=== PATIENT | female | born 1965 | race Caucasian/White ===

== ENCOUNTER 2017-07-29 17:37 | Observation (INO) | payer MEDICARE, OTHER ==
[~2017-07-29] VITALS: Ht 160 cm; Wt 67.6 kg
--- OUTSIDE RECORDS SUMMARY | 2017-07-29 17:39 | XMS REPORT | Clinical Summary ---
Author Author [facility] Organization [facility] Address Unknown Phone Unavailable Care Team Providers Care Log Skidder Name Role Phone Deepthi Edouard MD PCP Allergies Active Allergy Reactions Severity Noted Date Comments Ciprofloxacin Rash Low 02/16/2016 Clindamycin Hives, Rash High 10/01/2016 Ziprasidone Hcl High 02/16/2016 Fluid around heart Other 12/25/2016 All medications that prolong QT Metoclopramide Hcl 02/16/2016 Seizures Current Medications Prescription Sig. Disp. Refills Start End Date Status Date HYDROcodone-acetaminophen Take 1 tablet by mouth Active (NORCO 10-325) 10-325 mg every 4 (four) hours as per tablet needed for moderate pain. mirtazapine (REMERON) 15 Take 15 mg by mouth Active MG tablet nightly. pantoprazole (PROTONIX) Take 40 mg by mouth 3 Active 40 MG EC tablet (three) times a day. promethazine (PHENERGAN) Take 12.5 mg by mouth Active 12.5 MG tablet every 8 (eight) hours as needed for nausea or vomiting. sertraline (ZOLOFT) 100 Take 150 mg by mouth Active MG tablet nightly. sucralfate (CARAFATE) 1 Take 1 g by mouth 4 Active gram tablet (four) times a day. lamoTRIgine (LaMICtal) Take 200 mg by mouth Active 200 MG tablet daily. losartan (COZAAR) 50 MG Take 50 mg by mouth Active tablet daily. SUMAtriptan (IMITREX) 100 Take 100 mg by mouth once Active MG tablet as needed for migraine. May repeat in 2 hours if unresolved. Do not exceed 200 mg in 24 hours. levalbuterol (XOPENEX) Take 1 ampule by Active 1.25 mg/3 mL nebulizer nebulization every 4 solution (four) hours as needed for wheezing. beclomethasone (QVAR) 80 Inhale 2 puffs 2 (two) Active mcg/actuation inhaler times a day. cyclobenzaprine Take 10 mg by mouth 3 Active (FLEXERIL) 10 mg tablet (three) times a day. pregabalin (LYRICA) 100 Take 100 mg by mouth 2 Active MG capsule (two) times a day. umeclidinium (INCRUSE Inhale 62.5 mcg daily. Active ELLIPTA) 62.5 mcg/actuation blister with device methocarbamol (ROBAXIN) Take 750 mg by mouth 4 08/15/19 Discontin 750 MG tablet (four) times a day. 17 ued acyclovir (ZOVIRAX) 400 Take 400 mg by mouth 12/20/19 Discontin MG tablet daily. 17 ued lactulose (GENERLAC) 10 Take 20 g by mouth 4 12/20/19 Discontin gram/15 mL solution (four) times a day. 17 ued lamoTRIgine (LaMICtal) Take 200 mg by mouth 2 08/15/19 Discontin 200 MG tablet (two) times a day. 17 ued methocarbamol (ROBAXIN) Take 750 mg by mouth 4 09/14/19 Discontin 750 MG tablet (four) times a day. This 17 ued medication has been exchanged for another medication that she can't remember the name of. ipratropium-albuterol Take 3 mL by nebulization 09/14/19 Discontin (DUO-NEB) 0.5-2.5 mg/mL 4 (four) times a day as 17 ued nebulizer needed for wheezing. acetaminophen-codeine Take 1 tablet by mouth 40 tablet 0 09/14/19 Discontin (TYLENOL WITH CODEINE #3) every 4 (four) hours as 17 17 ued 300-30 mg per tablet needed for moderate pain for up to 14 days. clindamycin (CLEOCIN) 300 Take 1 capsule (300 mg 40 capsule 0 09/28/19 MG capsule total) by mouth every 6 17 17 (six) hours for 10 days. Active Problems Problem Noted Date Gastroparesis 12/25/2016 Cellulitis 09/17/2016 Cervical radiculopathy 04/20/2016 Osteoarthritis of cervical spine 04/20/2016 Night sweats 02/16/2016 Weight gain 02/16/2016 Headache 02/16/2016 Problems with hearing 02/16/2016 Abdominal pain 02/16/2016 Constipation 02/16/2016 Diarrhea 02/16/2016 Heartburn 02/16/2016 Nausea 02/16/2016 Vomiting 02/16/2016 Palpitations 02/16/2016 Shortness of breath 02/16/2016 Cold intolerance 02/16/2016 Dizziness 02/16/2016 Anxiety 02/16/2016 Depression 02/16/2016 Carpal tunnel syndrome of right wrist 02/16/2016 Ulnar nerve compression 02/16/2016 Encounters Date Type Specialty Care Team Description 01/28/2017 Office Visit Orthopedic Surgery Juan Mcmahan, Cervical vertebral fusion (Primary Dx); Chronic low back pain without sciatica, unspecified back pain laterality 12/25/2016 [facility] Obstetrics and Gynecology Venkat Pitts MD Gastroparesis - Encounter 12/28/2016 12/25/2016 Procedure Pass General Surgery 12/25/2016 Surgery General Surgery Venkat Pitts MD LAPAROSCOPIC REMOVAL OF GASTRIC PACEMAKER AND NEUROSTIMULATOR 12/19/2016 Pre-Admit Pre-Admission Testing Venkat Pitts MD Preop testing (Primary Testing Dx) Appointment 12/19/2016 Office Visit General Surgery Venkat Pitts MD Generalized abdominal pain (Primary Dx) 12/19/2016 Anesthesia General Surgery Sunil Jules APRN Event 11/22/2016 Telephone Orthopedic Surgery Jennifer Hernandez 11/15/2016 Procedure Pass General Surgery 10/01/2016 Office Visit General Surgery Venkat Pitts MD Gastroparesis (Primary Dx) 09/24/2016 Office Visit Orthopedic Surgery Juan Mcmahan, Cervical vertebral fusion (Primary Dx); Degeneration of lumbar intervertebral disc; Lumbar radiculopathy, acute 09/17/2016 [facility] General Surgery Abdirahman Francois MD Encounter Venkat Pitts MD 09/17/2016 Patient Quality Alicia Nowak, HOLLY Outreach 09/13/2016 [facility] General Surgery Venkat Pitts MD Encounter 09/13/2016 Procedure Pass General Surgery 09/13/2016 Surgery General Surgery Venkat Pitts MD LAPAROSCOPIC GASTRIC PACEMAKER POCKET EXCHANGE 09/11/2016 Orders Only General Surgery Magdaleno Munoz MD 09/10/2016 Anesthesia General Surgery [facility], Event MAREN Morales 08/13/2016 Office Visit Orthopedic Surgery Juan Mcmahan, Degeneration of lumbar MD intervertebral disc (Primary Dx); Spinal stenosis, lumbar; Lumbar radiculopathy, acute 2016 Office Visit General Surgery Venkat Pitts MD Gastroparesis (Primary Dx); Malfunction of device, initial encounter 08/03/2016 Office Visit Orthopedic Surgery Juan Mcmahan, Cervical vertebral fusion (Primary Dx); Acute left-sided low back pain with left-sided sciatica 08/03/2016 Office Visit Orthopedic Surgery Ran Hicks MD Arthritis of both hands (Primary Dx) after 07/28/2016 Family History Medical History Relation Name Comments Heart disease Father main valve;pig valve Alzheimer's disease Mother HIV Other sibling Relation Name Status Comments Father Mother Other sibling Social History Tobacco Use Types Packs/Day Years Used Date Never Smoker Smokeless Tobacco: Never Used Alcohol Use Drinks/Week oz/Week Comments No Sex Assigned at Date Recorded Not on file Last Filed Vital Signs Vital Sign Reading Time Taken Blood Pressure 165/89 12/28/2016 8:02 PM CDT Pulse 67 12/28/2016 8:02 PM CDT Temperature 36.5 C (97.7 F) 12/28/2016 8:02 PM CDT Respiratory Rate 18 12/28/2016 8:02 PM CDT Oxygen Saturation 97% 12/28/2016 8:02 PM CDT Inhaled Oxygen - - Concentration Weight 68 kg (150 lb) 01/28/2017 4:13 PM CDT Height 160 cm (5' 3") 01/28/2017 4:13 PM CDT Body Mass Index 26.57 01/28/2017 4:13 PM CDT Plan of Treatment Health Maintenance Due Date Last Done Comments FOOT EXAM 1974 OPHTHALMOLOGY EXAM 1974 URINE MICROALBUMIN 1974 PAP SMEAR 1985 COLONOSCOPY 2014 MAMMOGRAM 2014 INFLUENZA VACCINE 01/08/2017 Implants Implanted Type Area Hose Seamer Device Expiration Model / Identifier Date Serial / Lot Hde# [id number] Neurostimulator Neurosurgi N/A: N/A [employer] 2016 [id number] / Enterra Ii Therapy System - david NEUROMODULATION [id number] - [id number] Implants / Implanted: Qty: 1 on 09/13/2016 by [id number] Venkat Pitts MD Procedures Procedure Name Priority Date/Time Associated Diagnosis Comments DC AN ELECTIVE Routine 12/25/2016 ENDOTRACHEAL AIRWAY 4:21 PM CDT Procedure Note - Claudia Hawkins CRNA - 12/25/2016 4:21 PM CDT Airway Performed by: CLAUDIA HAWKINS Authorized by: ANÍBAL MOREIRA Location: OR Urgency: Elective Difficult Airway: No Preoxygena alexa with 100% O2: Yes Mask Ventilatio n: Easy mask Final Airway Type: Endotrache al airway Final Endotrache al Airway: ETT Technique Used: Direct laryngosco py Blade Type: San Laryngosco pe Blade/Vide olaryngosc ope Blade Size: 2 ETT Size (mm): 7.0 Measured from: Teeth ETT to Teeth (cm): 20 Placement Verified by: CO2 detection and direct visualizat ion Rapid Sequence Induction (RSI): Yes Number of Attempts at Approach: 1 LAPAROSCOPIC REMOVAL OF 12/25/2016 Gastroparesis GASTRIC PACEMAKER AND 4:00 PM CDT NEUROSTIMULATOR Case Notes POSSIBLE EXTENDED RECOVERY NEEDED Special Needs POSSIBLE EXTENDED RECOVERY NEEDED CV DEFIBRILLATOR STAT 12/25/2016 PROGRAMMING SINGLE 11:19 AM CDT LAPAROSCOPIC GASTRIC 09/13/2016 Diabetic gastroparalysis PACEMAKER POCKET EXCHANGE 10:30 AM CDT Case Notes [employer] DEVICE (OFC TO CONTACT REP) Special Needs [employer] DEVICE (OFC TO CONTACT REP) after 07/28/2016 Results * XR Cervical Spine 2 Or 3 Vw (01/28/2017 4:10 PM) Only the most recent of 3 results within the time period is included. Specimen Performing Laboratory [facility] [id number] [place] [address] Narrative X-rays cervical spine C5 desk 6 and C4-5 ACDF. No interbody cage collapse. No screw telescoping endplate breakage. No fractures visualized. * XR Thoracic Spine 2 Vw (01/28/2017 4:10 PM) Specimen Performing Laboratory [facility] [address] [place] [address] Narrative X-ray thoracic spine shows multilevel disc degeneration. No compression fractures visualized. * Urinalysis screen and microscopy, with reflex to culture (12/27/2016 9:15 AM) Only the most recent of 2 results within the time period is included. Component Value Ref Range Specimen site Clean catch Color, UA Yellow Appearance, UA Clear Specific gravity, UA 1.011 1.001 - 1.035 pH, UA 6.0 5.0 - 8.5 Protein, UA Negative Negative Glucose, UA Negative Negative Ketones, UA 2+ (A) Negative Bilirubin, UA Negative Negative Blood, UA Negative Negative Nitrite, UA Negative Negative Urobilinogen, UA <2.0 <2.0 Leukocyte esterase, UA Negative Negative Epithelial cells, UA <1 /HPF WBC, UA None seen 0 - 4 /HPF RBC, UA None seen 0 - 2 /HPF Bacteria, UA None seen None seen Yeast, UA None seen Yeast with pseudohyphae, None seen UA Specimen Performing Laboratory Urine [facility] DEPARTMENT OF PATHOLOGY AND [facility] MEDICINE [address] [place], [place] [id number] * Urine culture (12/27/2016 9:15 AM) Only the most recent of 2 results within the time period is included. Component Value Ref Range Urine culture SEE COMMENTComment: Bacteriuria screen negative. Specimen Performing Laboratory [facility] DEPARTMENT OF PATHOLOGY AND GENOMIC MEDICINE [address] [place], [place] [id number] * Estimated GFR (12/26/2016 9:14 PM) Only the most recent of 4 results within the time period is included. Component Value Ref Range GFR Non Af Amer 88 mL/min/1.73 m2 GFR Af Amer >90 mL/min/1.73 m2 Comment: Chronic kidney disease: <60 mL/min/1.73m2 Kidney failure: <15 mL/min/1.73m2 The estimated GFR is calculated from the IDMS-traceable Modification of Diet in Renal Disease Equation. The accuracy of the calculation is poor when the creatinine is normal. Calculated values >90 mL/min/1.73m2 are not reported. This equation has not been validated in children (<18 years), women, the elderly (>70 years), or ethnic groups other than Caucasians and Americans. Specimen Performing Laboratory Plasma specimen [facility] DEPARTMENT OF PATHOLOGY AND GENOMIC MEDICINE [address] [place], [place] [id number] * Phosphorus level (12/26/2016 9:14 PM) Only the most recent of 2 results within the time period is included. Component Value Ref Range Phosphorus 3.1 2.4 - 4.5 mg/dL Specimen Performing Laboratory Plasma specimen [facility] DEPARTMENT OF PATHOLOGY AND GENOMIC MEDICINE [address] [place] [address] * Magnesium level (12/26/2016 9:14 PM) Only the most recent of 2 results within the time period is included. Component Value Ref Range Magnesium 1.9 1.6 - 2.6 mg/dL Specimen Performing Laboratory Plasma specimen [facility] DEPARTMENT OF PATHOLOGY AND [facility] [address] [place] [address] * Lactic acid level (12/26/2016 9:14 PM) Only the most recent of 2 results within the time period is included. Component Value Ref Range Lactic acid 1.2 0.5 - 2.2 mmol/L Specimen Performing Laboratory Plasma specimen [facility] DEPARTMENT OF PATHOLOGY AND [address] [address] * Basic metabolic panel (12/26/2016 9:14 PM) Only the most recent of 2 results within the time period is included. Component Value Ref Range Sodium 139 135 - 148 mEq/L Potassium 4.4 3.5 - 5.0 mEq/L Chloride 104 98 - 112 mEq/L CO2 26 24 - 31 mEq/L Anion gap 9 7 - 15 mEq/L Comment: Starting from September , anion gap calculation no longer incorporates potassium. Please note the change. BUN 9 6 - 20 mg/dL Creatinine 0.7 0.5 - 0.9 mg/dL Glucose 98 65 - 99 mg/dL Calcium 8.7 8.3 - 10.2 mg/dL Specimen Performing Laboratory Plasma specimen [facility] DEPARTMENT OF PATHOLOGY AND GENOMIC MEDICINE [address] [place], [place] [id number] * Manual differential (12/26/2016 9:00 PM) Component Value Ref Range Manual differential PERFORMED Neutrophils 58.0 39.0 - 69.0 % Lymphocytes 24.0 (L) 25.0 - 45.0 % Monocytes 9.0 0.0 - 10.0 % Eosinophils 8.0 (H) 0.0 - 5.0 % Basophils 1.0 0.0 - 1.0 % Metamyelocytes 0 % Promyelocytes 0 % Platelet slide review Tamar adequate Specimen Performing Laboratory [facility] DEPARTMENT OF PATHOLOGY AND [facility] MEDICINE [address] [place] [address] * CBC with platelet and differential (12/26/2016 9:00 PM) Only the most recent of 4 results within the time period is included. Component Value Ref Range WBC 4.55 4.50 - 11.00 k/uL RBC 3.35 (L) 4.20 - 5.50 m/uL HGB 9.8 (L) 12.0 - 16.0 g/dL HCT 31.1 (L) 37.0 - 47.0 % MCV 92.8 82.0 - 100.0 fL MCH 29.3 27.0 - 34.0 pg MCHC 31.5 31.0 - 37.0 g/dL RDW - SD 49.9 37.0 - 55.0 fL MPV 12.3 8.8 - 13.2 fL Platelet count 161 150 - 400 k/uL Nucleated RBC 0.00 /100 WBC Neutrophils 58.0 39.0 - 69.0 % Lymphocytes 24.0 (L) 25.0 - 45.0 % Monocytes 9.0 0.0 - 10.0 % Eosinophils 8.0 (H) 0.0 - 5.0 % Basophils 1.0 0.0 - 1.0 % Specimen Performing Laboratory Blood [facility] DEPARTMENT OF PATHOLOGY AND GENOMIC MEDICINE [address] [place] [address] * XR Abdomen 1 Vw Portable (12/26/2016 1:13 AM) Specimen Performing Laboratory [facility] [address] [place] [address] Narrative EXAMINATION:XR ABDOMEN 1 VW PORTABLE CLINICAL HISTORY:Vomiting COMPARISON:06/13/2016 IMPRESSION: 1.Electronic stent 2.Or device has been removed. Cholecystectomy clips are present. A few prominent loops of small bowel are noted in the pelvis. CT could be obtained. Procedure Note Interface, Radiology Results Incoming - 12/26/2016 1:19 AM CDT EXAMINATION: XR ABDOMEN 1 VW PORTABLE CLINICAL HISTORY: Vomiting COMPARISON: 06/13/2016 IMPRESSION: 1. Electronic stent 2. Or device has been removed. Cholecystectomy clips are present. A few prominent loops of small bowel are noted in the pelvis. CT could be obtained. * Partial thromboplastin time, activated (12/25/2016 12:00 PM) Only the most recent of 2 results within the time period is included. Component Value Ref Range PTT 30.2 23.0 - 36.0 sec Comment: PTT therapeutic range for unfractionated heparin is 61.0-112.0 seconds which corresponds to Anti-Xa 0.3-0.7 U/ml. Specimen Performing Laboratory Blood [facility] DEPARTMENT OF PATHOLOGY AND GENOMIC MEDICINE [address] [place] [address] * Prothrombin time with INR (12/25/2016 12:00 PM) Only the most recent of 2 results within the time period is included. Component Value Ref Range Prothrombin time 13.2 12.0 - 15.0 sec INR 1.0 Comment: The International Normalized Ratio (INR) is a therapeutic monitoring tool for patients who are stable on oral anticoagulant therapy. An INR of 2.0-3.0 is suggested for deep vein thrombosis/pulmonary embolism. Specimen Performing Laboratory Blood [facility] DEPARTMENT OF PATHOLOGY AND GENOMIC MEDICINE [address] [place] [address] * CV pacemaker defib or ilr interrogation (12/25/2016 11:19 AM) Specimen Performing Laboratory [facility] [address] [place] [address] * Surgical pathology request (12/25/2016 8:59 AM) Only the most recent of 2 results within the time period is included. Component Value Ref Range Surgical pathology report See link below for PDF Lab Report Specimen Performing Laboratory [facility] [place] [address] * Comprehensive metabolic panel (12/19/2016 4:22 PM) Only the most recent of 2 results within the time period is included. Component Value Ref Range Sodium 140 135 - 148 mEq/L Potassium 3.9 3.5 - 5.0 mEq/L Chloride 103 98 - 112 mEq/L CO2 22 (L) 24 - 31 mEq/L Anion gap 15 7 - 15 mEq/L Comment: Starting from September , anion gap calculation no longer incorporates potassium. Please note the change. BUN 15 6 - 20 mg/dL Creatinine 0.7 0.5 - 0.9 mg/dL Glucose 102 (H) 65 - 99 mg/dL Calcium 9.0 8.3 - 10.2 mg/dL Protein 7.2 6.3 - 8.3 g/dL Comment: [place] 4.6-7.0 g/dL 1 week 4.4-7.6 g/dL 7 months-1year 5.1-7.3 g/dL 1-2 years 5.6-7.5 g/dL >3 years 6.0-8.0 g/dL 18-150 6.3-8.3 g/dL Albumin 3.5 3.5 - 5.0 g/dL A/G ratio 0.9 0.7 - 3.8 Alkaline phosphatase 103 35 - 104 U/L AST 23 10 - 35 U/L ALT 13 5 - 50 U/L Total bilirubin <0.2 0.0 - 1.2 mg/dL Specimen Performing Laboratory Plasma specimen [facility] DEPARTMENT OF PATHOLOGY AND GENOMIC MEDICINE [address] [place] [address] * ECG 12 lead (09/17/2016 3:33 AM) Only the most recent of 2 results within the time period is included. Component Value Ref Range Ventricular rate 60 Atrial rate 60 DC interval 190 QRSD interval 94 QT interval 446 QTC interval 446 P axis 1 41 QRS axis 1 32 T wave axis 32 EKG impression Normal sinus rhythm-Normal ECG-In automated comparison with ECG of 14-AUG-2016 17:23,-No significant change was found- Specimen Performing Laboratory [facility] [address] [place] [address] * ECG Pre/Post Op (08/14/2016 5:23 PM) Component Value Ref Range Ventricular rate 63 Atrial rate 63 DC interval 162 QRSD interval 90 QT interval 428 QTC interval 437 P axis 1 13 QRS axis 1 73 T wave axis 19 EKG impression Normal sinus rhythm-Normal ECG-In automated comparison with ECG of 16-JUN-2016 17:30,-Borderline criteria for Anterior infarct are no longer present-Nonspecific T wave abnormality no longer evident in Anterolateral leads- Specimen Performing Laboratory [facility] [address] [place] [address] * Urinalysis, automated with microscopy (08/14/2016 3:55 PM) Component Value Ref Range Color, UA Straw Appearance, UA Clear Specific gravity, UA 1.009 1.001 - 1.035 pH, UA 6.0 5.0 - 8.5 Protein, UA Negative Negative Glucose, UA Negative Negative Ketones, UA Negative Negative Bilirubin, UA Negative Negative Blood, UA Negative Negative Nitrite, UA Negative Negative Urobilinogen, UA <2.0 <2.0 Leukocyte esterase, UA Negative Negative Epithelial cells, UA <1 /HPF WBC, UA <1 0 - 4 /HPF RBC, UA 1 0 - 2 /HPF Bacteria, UA Few None seen Hyaline casts, UA 3 /LPF Yeast, UA None seen Yeast with pseudohyphae, None seen UA Specimen Performing Laboratory Urine [facility] DEPARTMENT OF PATHOLOGY AND GENOMIC MEDICINE [address] [place] [address] * XR Lumbar Spine Complete 4+ Vw (08/03/2016 3:39 PM) [facility] [address] [place] [address] Narrative X-ray lumbar spine multiple views shows multilevel disc degeneration in the thoracic, thoracolumbar and lumbar spine. Flexion-extension shows no spondylolisthesis. No compression fractures. Oblique view shows no pars fractures. AP view shows no degenerative scoliosis but multilevel facet arthrosis also present. after 07/28/2016 Insurance Payer Benefit Subscriber ID Type Phone Address Plan / Group C MEDICARE UNITED/CAR xxxxxxxxx HMO E IMPROVEMEN T [facility] MEDICAID MEDICAID xxxxxxxxx [place] [address]
[2017-07-29] MEDS ORDERED: ONDANSETRON HCL INJ 2 MG/ML VIAL IV STA (18:44)
[2017-07-29] MEDS ORDERED: KETOROLAC TROMETHAMINE 30 MG/ML VIAL IV STA (18:44)
[2017-07-29] MEDS ORDERED: MORPHINE SULFATE 2 MG/ML SYR IV PRN (20:00)
[2017-07-29] MEDS ORDERED: SODIUM CHLORIDE 0.9% 1000ML 1,000 ML IV ONE (20:15)
[2017-07-29] MEDS ORDERED: SUCRALFATE1 GM PO ×2 (20:45)
[2017-07-29] MEDS ORDERED: ADVAIR 100-501 EACH (20:45)
[2017-07-29] MEDS ORDERED: METOPROLOL TART50 MG PO (20:45)
[2017-07-29] MEDS ORDERED: HYDROXYZINE HCL25 MG PO (20:45)
[2017-07-29] MEDS ORDERED: LUNESTA2 MG PO (20:45)
[2017-07-29] MEDS ORDERED: LEVALBUTER0.63 MG/3 NEB (20:45)
[2017-07-29] MEDS ORDERED: LYRICA50 MG PO (20:45)
[2017-07-29] MEDS ORDERED: SUMATRIPTAN20 MG (20:45)
[2017-07-29] MEDS ORDERED: BENZONATATE100 MG PO (20:45)
[2017-07-29] MEDS ORDERED: DICYCLOMINE HCL20 MG PO (20:45)
[2017-07-30] VITALS (7 sets, daily range): BP systolic 85–119; BP diastolic 51–70
[2017-07-30] MEDS ORDERED: ONDANSETRON HCL 4 MG ORAL DISINTEGRATING TAB PO ONE
--- OUTSIDE RECORDS SUMMARY | 2017-07-30 00:33 | XMS REPORT | Clinical Summary ---
Author Author [facility] Organization [facility] Address Unknown Phone Unavailable Care Team Providers Care Quality Assurance Coach Name Role Phone Deepthi Edouard MD PCP [...] without sciatica, unspecified back pain laterality 12/25/2016 [facility] Obstetrics and Gynecology Venkat Pitts [...] General Surgery 10/01/2016 Office Visit General Surgery Vnekat Pitts MD Gastroparesis (Primary Dx) 09/24/2016 Office Visit Orthopedic Surgery Juan Mcmahan, Cervical vertebral fusion (Primary Dx); Degeneration of lumbar intervertebral disc; Lumbar radiculopathy, acute 09/17/2016 [facility] General Surgery Abdirahman Francois MD Encounter Venkat Pitts MD 09/17/2016 Patient Quality Alicia Nowak, HOLLY Outreach 09/13/2016 [facility] General Surgery Venkat Pitts MD Encounter 09/13/2016 Procedure Pass General Surgery 09/13/2016 Surgery General Surgery Venkat Pitts MD LAPAROSCOPIC GASTRIC PACEMAKER POCKET EXCHANGE 09/11/2016 Orders Only General Surgery Magdaleno Munoz MD 09/10/2016 Anesthesia General Surgery [facility], Event MAREN Morales 08/13/2016 Office Visit [...] Arthritis of both hands (Primary Dx) after 07/29/2016 Family History Medical History Relation Name Comments [...] INFLUENZA VACCINE 01/08/2017 Implants Implanted Type Area Welder Tack Device Expiration Model / Identifier Date Serial / Lot Hde# [id number] Neurostimulator Neurosurgi N/A: N/A [employer] 2016 [id number] / Enterra Ii Therapy System - david NEUROMODULATION [id number] - [id number] Implants / Implanted: Qty: 1 on 09/13/2016 by [id number] Venkat Pitts MD Procedures Procedure Name Priority Date/Time Associated Diagnosis Comments SD AN ELECTIVE Routine 12/25/2016 ENDOTRACHEAL AIRWAY 4:21 [...] [employer] DEVICE (OFC TO CONTACT REP) after 07/29/2016 Results * XR Cervical Spine 2 Or 3 Vw (01/28/2017 4:10 PM) Only the most recent of 3 results within the time period is included. Specimen Performing Laboratory [facility] [id number] [place] [address] Narrative X-rays cervical spine C5 desk 6 and C4-5 ACDF. No interbody cage collapse. No screw telescoping endplate breakage. No fractures visualized. * XR Thoracic Spine 2 Vw (01/28/2017 4:10 PM) Specimen Performing Laboratory [facility] [address] [place] [address] Narrative X-ray thoracic spine shows multilevel disc [...] None seen UA Specimen Performing Laboratory Urine [facility] DEPARTMENT OF PATHOLOGY AND [facility] MEDICINE [address] [place], [place] [id number] * Urine culture (12/27/2016 9:15 AM) Only the most recent of 2 results within the time period is included. Component Value Ref Range Urine culture SEE COMMENTComment: Bacteriuria screen negative. Specimen Performing Laboratory [facility] DEPARTMENT OF PATHOLOGY AND GENOMIC MEDICINE [address] [place], [place] [id number] * Estimated GFR (12/26/2016 9:14 PM) Only [...] and Americans. Specimen Performing Laboratory Plasma specimen [facility] DEPARTMENT OF PATHOLOGY AND GENOMIC MEDICINE [address] [place], [place] [id number] * Phosphorus level (12/26/2016 9:14 PM) Only the most recent of 2 results within the time period is included. Component Value Ref Range Phosphorus 3.1 2.4 - 4.5 mg/dL Specimen Performing Laboratory Plasma specimen [facility] DEPARTMENT OF PATHOLOGY AND GENOMIC MEDICINE [address] [place] [address] * Magnesium level (12/26/2016 9:14 PM) Only the most recent of 2 results within the time period is included. Component Value Ref Range Magnesium 1.9 1.6 - 2.6 mg/dL Specimen Performing Laboratory Plasma specimen [facility] DEPARTMENT OF PATHOLOGY AND [facility] [address] [place] [address] * Lactic acid level (12/26/2016 9:14 PM) Only the most recent of 2 results within the time period is included. Component Value Ref Range Lactic acid 1.2 0.5 - 2.2 mmol/L Specimen Performing Laboratory Plasma specimen [facility] DEPARTMENT OF PATHOLOGY AND [address] [address] * Basic metabolic panel (12/26/2016 9:14 PM) [...] 10.2 mg/dL Specimen Performing Laboratory Plasma specimen [facility] DEPARTMENT OF PATHOLOGY AND GENOMIC MEDICINE [address] [place], [place] [id number] * Manual differential (12/26/2016 9:00 PM) Component Value Ref Range Manual differential PERFORMED Neutrophils 58.0 39.0 - 69.0 % Lymphocytes 24.0 (L) 25.0 - 45.0 % Monocytes 9.0 0.0 - 10.0 % Eosinophils 8.0 (H) 0.0 - 5.0 % Basophils 1.0 0.0 - 1.0 % Metamyelocytes 0 % Promyelocytes 0 % Platelet slide review Tamar adequate Specimen Performing Laboratory [facility] DEPARTMENT OF PATHOLOGY AND [facility]ICINE [address] [place] [address] * CBC with platelet and differential (12/26/2016 [...] - 1.0 % Specimen Performing Laboratory Blood [facility] DEPARTMENT OF PATHOLOGY AND GENOMIC MEDICINE [address] [place] [address] * XR Abdomen 1 Vw Portable (12/26/2016 1:13 AM) Specimen Performing Laboratory [facility] [address] [place] [address] Narrative EXAMINATION:XR ABDOMEN 1 VW PORTABLE CLINICAL [...] Anti-Xa 0.3-0.7 U/ml. Specimen Performing Laboratory Blood [facility] DEPARTMENT OF PATHOLOGY AND GENOMIC MEDICINE [address] [place] [address] * Prothrombin time with INR (12/25/2016 12:00 [...] vein thrombosis/pulmonary embolism. Specimen Performing Laboratory Blood [facility] DEPARTMENT OF PATHOLOGY AND GENOMIC MEDICINE [address] [place] [address] * CV pacemaker defib or ilr interrogation (12/25/2016 11:19 AM) Specimen Performing Laboratory [facility] [address] [place] [address] * Surgical pathology request (12/25/2016 8:59 AM) Only the most recent of 2 results within the time period is included. Component Value Ref Range Surgical pathology report See link below for PDF Lab Report Specimen Performing Laboratory [facility] [place] [address] * Comprehensive metabolic panel (12/19/2016 4:22 PM) [...] Protein 7.2 6.3 - 8.3 g/dL Comment: [place] 4.6-7.0 g/dL 1 week 4.4-7.6 g/dL 7 [...] 1.2 mg/dL Specimen Performing Laboratory Plasma specimen [facility] DEPARTMENT OF PATHOLOGY AND GENOMIC MEDICINE [address] [place] [address] * ECG 12 lead (09/17/2016 3:33 AM) Only the most recent of 2 results within the time period is included. Component Value Ref Range Ventricular rate 60 Atrial rate 60 SD interval 190 QRSD interval 94 QT interval 446 QTC interval 446 P axis 1 41 QRS axis 1 32 T wave axis 32 EKG impression Normal sinus rhythm-Normal ECG-In automated comparison with ECG of 14-AUG-2016 17:23,-No significant change was found- Specimen Performing Laboratory [facility] [address] [place] [address] * ECG Pre/Post Op (08/14/2016 5:23 PM) Component Value Ref Range Ventricular rate 63 Atrial rate 63 SD interval 162 QRSD interval 90 QT interval 428 QTC interval 437 P axis 1 13 QRS axis 1 73 T wave axis 19 EKG impression Normal sinus rhythm-Normal ECG-In automated comparison with ECG of 16-JUN-2016 17:30,-Borderline criteria for Anterior infarct are no longer present-Nonspecific T wave abnormality no longer evident in Anterolateral leads- Specimen Performing Laboratory [facility] [address] [place] [address] * Urinalysis, automated with microscopy (08/14/2016 3:55 [...] None seen UA Specimen Performing Laboratory Urine [facility] DEPARTMENT OF PATHOLOGY AND GENOMIC MEDICINE [address] [place] [address] * XR Lumbar Spine Complete 4+ Vw (08/03/2016 3:39 PM) [facility] [address] [place] [address] Narrative X-ray lumbar spine multiple views shows multilevel disc degeneration in the thoracic, thoracolumbar and lumbar spine. Flexion-extension shows no spondylolisthesis. No compression fractures. Oblique view shows no pars fractures. AP view shows no degenerative scoliosis but multilevel facet arthrosis also present. after 07/29/2016 Insurance Payer Benefit Subscriber ID Type Phone Address Plan / Group C MEDICARE UNITED/CAR xxxxxxxxx HMO E [facility] MEDICAID MEDICAID xxxxxxxxx [place] [address]
--- OUTSIDE RECORDS SUMMARY | 2017-07-30 00:33 | XMS REPORT | Continuity of Care Document ---
Author Author [facility] Organization [facility] Address [address] [address] Phone Unavailable Care Team Providers Care Director Pharmacy Services Name Role Phone PATRICIA ESPINAL MD PCP Insurance Providers Guarantor Savana Young Address [address] [place] [address] Email [facility] Medicare Replacement Policy Number [id number] Subscriber's Name Savana Young Relationship 18 Self / Same As Patient Advance Directives Directive Response Recorded Date/Time Does the patient have an advance directive? No 07/29/17 5:48pm Do you have a Directive to Physician? No 07/29/17 5:48pm Do you have a Medical Power of Solar Pool Heating Installer? No 07/29/17 5:48pm Do you have an out of hospital Do Not Resuscitate Order? No 07/29/17 5:48pm Do you have any special needs we should be aware of? No 07/29/17 5:48pm Do you have a support person here with you today? No 07/29/17 5:48pm Did patient receive Notice of Privacy Practices? Yes 07/29/17 5:48pm Did patient receive patient rights and responsibilities? Yes 07/29/17 5:48pm Problems Medical Problem Onset Date Status Abdominal pain Unknown Emesis Unknown Medications Current Home Medications Medication Dose Units Route Directions Days Qty Instructions Start Date Benzonatate 100 Mg Capsule 100 Mg Oral Three Times A Day Dicyclomine Hcl 20 Mg Tablet 20 Mg Oral Four Times Daily Eszopiclone (Lunesta) 2 Mg Tablet Fluticasone/Salmeterol (Advair 100-50 Diskus) 1 Each Disk.w.dev Hydroxyzine Hcl 25 Mg Tablet 25 Mg Oral Daily 30 Tab Levalbuterol Hcl 0.63 Mg/3 Ml Vial.neb 0.63 Mg Nebullizer Metoprolol Tartrate 50 Mg Tablet 50 Mg Oral Pregabalin (Lyrica) 50 Mg Cap 50 Mg Daily 30 Tab Sucralfate 1 Gm Tablet 1 Gm Oral Twice A Day Sucralfate 1 Gm Tablet 1 Gm Oral Twice A Day Sumatriptan 20 Mg [place] Social History Smoking Status Start Date Stop Date Former smoker Hospital Discharge Instructions No hospital discharge instruction information available. Plan of Care Discharge Date 07/29/17 11:58pm Disposition ADMITTED Condition at Discharge Stable Forms Provided Work/School Excuse Prescriptions See Medication Section Functional Status No functional status information available. Allergies, Adverse Reactions, Alerts Allergen Type Severity Reaction Status Last Updated Ciprofloxacin Allergy Unknown rash Active 07/29/17 Metoclopramide Allergy Unknown sezuires Active 07/29/17 Ziprasidone Allergy Unknown fluid around the heart Active 07/29/17 Immunizations No immunization information available. Vital Signs Acute Vital Signs Vital Response Date/Time Temperature (Fahrenheit) 98.0 degrees F (97.6 - 99.5) 07/29/2017 11:57pm Pulse Pulse Rate (adult) 64 bpm (60 - 90) 07/29/2017 11:57pm Respiratory Rate 16 bpm (12 - 24) 07/29/2017 11:57pm Blood Pressure 126/74 mm Hg 07/29/2017 11:57pm Height 5 ft 3 in 07/29/2017 6:40pm Weight 145 lb 07/29/2017 6:40pm Body Mass Index 25.7 kg/m^2 07/29/2017 6:40pm Results No relevant diagnostic test, laboratory data and/or discharge summary information available. Procedures No procedure information available. Encounters Encounter Location Arrival/Admit Date Discharge/Depart Date Attending Provider Registered Emergency Room [facility] 07/29/17 5:37pm GEOVANY MALIK MD
[2017-07-30] MEDS ORDERED: PNEUMOCOCCAL VACCINE POLYVALENT 23 MCG/0.5 ML VIAL IM ONE ×2 (02:30→18:55)
[2017-07-30] MEDS ORDERED: ASPIR 8181 MG PO (02:57)
[2017-07-30] MEDS ORDERED: PROCHLORPERAZIN10 MG PO (02:57)
[2017-07-30] MEDS ORDERED: SUMATRIPTAN SUC25 MG PO (02:57)
[2017-07-30] MEDS ORDERED: PROMETHAZINE HC25 M1 PO (02:57)
[2017-07-30] MEDS ORDERED: LAMOTRIGINE100 MG PO (02:57)
[2017-07-30] MEDS ORDERED: PANTOPRAZOLE SO40 MG PO (02:57)
[2017-07-30] MEDS ORDERED: CYCLOBENZAPRINE10 MG PO (02:57)
[2017-07-30] MEDS ORDERED: SERTRALINE HCL100 MG PO (02:57)
[2017-07-30] MEDS ORDERED: BENZONATATE 100 MG CAP PO PRN (06:45)
[2017-07-30] MEDS ORDERED: PROMETHAZINE HCL 25 MG TAB PO PRN (06:45)
[2017-07-30] MEDS ORDERED: LEVALBUTEROL HCL SOLN NEBU 0.63 MG/3 ML NEB IH PRN (06:45)
--- NOTE | 2017-07-30 07:32 | History and Physical ---
DATE OF : 1965 A 51-year-old who comes in with abdominal pain. HISTORY OF PRESENTING ILLNESS: This is Ms. Young, who is a 51-year-old female with the history of colon resection and multiple recent surgeries in the abdomen, who was in his usual state of health until the day prior to admission. The patient started having abdominal pain, characteristic of 8/10 left lower quadrant and patient also had pain that was relentless and later on, waxing and waning and called her GI surgeon, who told her to come to the emergency room for further evaluation. PAST MEDICAL HISTORY: History of severe gastroparesis, history of panic attack, history of asthma, history of bipolar disease, history of chronic pain syndrome, history of depression, history of migraine headaches, and history of having anorexia and bulimia. SURGICAL HISTORY: History of colon resection, pacemaker placement, hysterectomy, times 2, lumpectomy. The patient also recently had a mesh removal with scar revision and adhesion removal and recent about a year ago. MEDICATIONS AT HOME 1. Benzonatate Perles. 2. Clonazepam. 3. Dicyclomine. 4. Advair 150. 5. Hydroxyzine 25 mg as needed. 6. Lamotrigine. 7. Labetalol. 8. Metoprolol. 9. Morphine sulfate. 10. Pantoprazole. Pregabalin, which is Lyrica. Compazine for nausea. Promethazine for nausea. Sertraline. Carafate. Imitrex REVIEW OF SYSTEMS: Negative for chest pain. Positive for some shortness of breath and . She has asthma. Positive for some nausea. No vomiting, no diarrhea, no constipation, no rectal bleeding, no hematochezia, no hematemesis. SOCIAL HISTORY: No EtOH. EXAMINATION VITAL SIGNS: Temperature is 97.6. Pulse of 56. Respiratory rate of 17. Blood pressure is 85/51. HEENT: Normocephalic, atraumatic. Pupils were reactive to light and accommodation. No jaundice present. CVS: S1 and S2 normal. Regular rate and rhythm. ABDOMEN: Tender in the left lower quadrant. No rebound and surgical present. EXTREMITIES: No clubbing, no cyanosis, and no edema. LABORATORY VALUES: Done in the office of outside. Initial white count of 6.4 and hemoglobin was 12.7, hematocrit was 36.8. BMP: Sodium is 140, potassium is 3.9, chloride 108, glucose 109, BUN was 11, creatinine was 1.1 with alkaline phosphatase of 131. ALT, AST 16 and 26 normal, T-bili 0.8. A drug panel was done, which was negative and drug screen was negative, and rapid test for ACG was negative too. Patient had a CT of the abdomen and pelvis, which apparently was normal. Will go ahead and see that personally. ASSESSMENT: Abdominal pain with a history of gastroparesis. White count is normal. Labs are normal and vitals are stable. Blood pressure is in the low range. Will go ahead and hydrate the patient. Will continue monitor the patient. We will start her on medication. Put her on clear liquid diet and continue monitor the patient. Patient will be on a 24-hour observation. Can go either tonight or tomorrow morning. Further recommendation per clinical course and will also consult gastrointestinal. Job#: [id number]
[2017-07-30] MEDS ORDERED: HYDROXYZINE HCL 25 MG TAB PO SCH (09:00)
[2017-07-30] MEDS ORDERED: SALMETEROL/FLUTICASONE 100/50 INH SCH (09:00)
[2017-07-30] MEDS: METOPROLOL TARTRATE 50 MG TAB PO SCH ×2 (09:00→17:00)
[2017-07-30] MEDS: CYCLOBENZAPRINE HCL 10 MG TAB PO SCH ×3 (09:09→21:34)
[2017-07-30] MEDS: SODIUM CHLORIDE 0.9% 1000ML 1,000 ML IV SCH ×2 (09:09→17:09)
[2017-07-30] MEDS: DICYCLOMINE HCL 20 MG TAB PO SCH ×2 (09:09→17:09)
[2017-07-30] MEDS: LAMOTRIGINE 100 MG TAB PO SCH ×2 (09:09→17:09)
[2017-07-30] MEDS: SUCRALFATE 1 GM TAB PO SCH ×3 (09:09→21:34)
[2017-07-30] MEDS: PANTOPRAZOLE SOD 40 MG TABEC PO SCH ×2 (09:10→17:10)
[2017-07-30] MEDS: PREGABALIN 50 MG CAP PO SCH ×2 (09:10→17:10)
[2017-07-30] MEDS: SUMATRIPTAN SUCCINATE 25 MG TAB PO SCH (11:42)
[2017-07-30] MEDS: PROCHLORPERAZINE MALEATE TAB 10 MG TAB PO SCH ×3 (11:42→21:34)
[2017-07-30] MEDS ORDERED: SERTRALINE HCL 100 MG TAB PO SCH (21:00)
[2017-07-30] MEDS: HYDROXYZINE HCL 25 MG TAB PO SCH (21:35)
[2017-07-31] MEDS: SODIUM CHLORIDE 0.9% 1000ML 1,000 ML IV SCH ×2 (00:24→08:30)
--- NOTE | 2017-07-31 01:32 | Consultation ---
DATE OF CONSULTATION: July 30, 2017 HISTORY: This is a 51-year-old who has history of gastroparesis, history of colon resections, and also abdominal surgery, and apparently has history of ulcer disease, presented to the hospital because of abdominal pain, mainly is in the upper abdominal area along with some nausea and vomiting. Here, workup so far revealed that her CAT scan was normal and her labs were okay, and she is feeling better at this point. She denies any bleeding along with this problem. OTHER MEDICAL PROBLEM: Significant for history of gastroparesis for which she pacemaker in the past that has been removed, history of asthma, history of chronic pain, history of depression, history of colon resections, again pacemaker placement and removal, history of hysterectomy, and lumpectomy. MEDICATIONS AT HOME: Including benzonatate, clonazepam, dicyclomine, Advair, hydroxyzine, lamotrigine, labetalol, metoprolol, morphine, and pantoprazole and is also on Lyrica, Compazine, sertraline, Carafate, and Imitrex. SOCIAL HISTORY: No alcohol use. FAMILY HISTORY: Noncontributory. REVIEW OF SYSTEMS: At this point, she denies any chest pain or shortness of breath. Denies any dysphagia or odynophagia. Denies any dysuria, hematuria or any kind of syncopal episodes. PHYSICAL EXAMINATION: GENERAL: Patient is awake, alert, appeared to be stable, not in acute distress at this point. VITAL SIGNS: Afebrile currently with stable vital signs. HEAD, EYES, EARS, NOSE, AND THROAT: Normocephalic, atraumatic. Sclerae are anicteric. NECK: Supple. HEART: Regular. ABDOMEN: Soft. There is significant tenderness in the epigastric area. There is no rebound or mass. EXTREMITIES: No clubbing. CAT scan was unremarkable and labs were okay. IMPRESSION: 1. Abdominal pain, nausea, and vomiting. 2. History of gastroparesis. 3. History of bipolar. RECOMMENDATIONS: Continue current care at this point. We will proceed with EGD for further evaluation tomorrow, and will follow up clinically. Job#: [id number] cc:MD DR. PATRICIA IBRAHIM
[2017-07-31 06:00] VITALS: BP 108/62
[2017-07-31 06:02] LABS: EOSINOPHILS # (AUTO) 0.3 (0.0-0.4); EOSINOPHILS % 10.8 % (0.0-6.0); HEMATOCRIT 33.3 % (34.2-44.1); HEMOGLOBIN 11.1 g/dL (12.0-16.0); LYMPHOCYTES # (AUTO) 1.1 (1.0-3.2); MEAN CORPUSCULAR HEMOGLOBIN 29.7 pg (28-32); MEAN CORPUSCULAR HGB CONC 33.3 g/dL (31-35); MONOCYTES # (AUTO) 0.3 (0.2-0.8); MONOCYTES % 10.8 % (4.4-11.3); NEUTROPHILS # (AUTO) 1.2 (2.1-6.9); NEUTROPHILS % 39.1 % (38.7-80.0); PLATELET COUNT 149 x10e3/uL (140-360); RED BLOOD COUNT 3.74 x10e6/uL (3.6-5.1); RED CELL DISTRIBUTION WIDTH 14.1 % (11.7-14.4)
[2017-07-31 06:26] LABS: ALANINE AMINOTRANSFERASE 12 IU/L (0-55); ALBUMIN 3.1 g/dL (3.5-5.0); ALBUMIN/GLOBULIN RATIO 1.1 (0.8-2.0); ALKALINE PHOSPHATASE 112 IU/L (40-150); ANION GAP 12.9 mmol/L (8-16); BLOOD UREA NITROGEN 9 mg/dL (7-26); BUN/CREATININE RATIO 10 (6-25); CALCIUM 8.1 mg/dL (8.4-10.2); CARBON DIOXIDE 17 mmol/L (22-29); CHLORIDE 117 mmol/L (98-107); EST GLOMERULAR FILTRATION RATE > 60 ML/MIN (60-); GLUCOSE 86 mg/dL (74-118); MAGNESIUM 1.9 MG/DL (1.3-2.1); PHOSPHORUS 3.5 MG/DL (2.3-4.7); POTASSIUM 3.9 mmol/L (3.5-5.1); SODIUM 143 mmol/L (136-145)
[2017-07-31 06:47] LABS: THYROID STIMULATING HORMONE 1.403 uIU/mL (0.350-4.940)
[2017-07-31] MEDS: SALMETEROL/FLUTICASONE 100/50 INH SCH ×2 (08:35→08:53)
[2017-07-31] MEDS: SUCRALFATE 1 GM TAB PO SCH ×2 (08:36→16:18)
[2017-07-31] MEDS: DICYCLOMINE HCL 20 MG TAB PO SCH (08:36)
[2017-07-31] MEDS: HYDROXYZINE HCL 25 MG TAB PO SCH (08:36)
[2017-07-31] MEDS: SUMATRIPTAN SUCCINATE 25 MG TAB PO SCH (08:52)
[2017-07-31] MEDS: CYCLOBENZAPRINE HCL 10 MG TAB PO SCH ×2 (08:52→16:18)
[2017-07-31] MEDS: PROCHLORPERAZINE MALEATE TAB 10 MG TAB PO SCH ×2 (08:52→16:18)
[2017-07-31] MEDS: LAMOTRIGINE 100 MG TAB PO SCH (08:53)
[2017-07-31] MEDS: PREGABALIN 50 MG CAP PO SCH (08:53)
[2017-07-31] MEDS: PANTOPRAZOLE SOD 40 MG TABEC PO SCH (08:53)
[2017-07-31] MEDS: METOPROLOL TARTRATE 50 MG TAB PO SCH (08:53)
[2017-07-31 09:21] VITALS: BP 102/56
[2017-07-31] MEDS ORDERED: SUCRALFATE 1 GM TAB PO SCH (16:30)
[2017-07-31] MEDS ORDERED: FENTANYL CITRATE/PF 100MCG/2 ML INJ ONE (19:16)
[2017-07-31] MEDS ORDERED: MIDAZOLAM HCL 2 MG/2 ML VIAL ONE (19:16)
== END 2017-07-31 16:11 | disposition home or self-care (01) ==
LOC: FSED 17:37 → IMCU 07-30 00:30
PROVIDERS: ADMIT Family Medicine; ATTEND Family Medicine
DX: K29.50 Unspecified chronic gastritis without bleeding (principal); R10.32 Left lower quadrant pain; K31.84 Gastroparesis; J45.909 Unspecified asthma, uncomplicated; Z88.1 Allergy status to other antibiotic agents; Z88.8 Allergy status to other drugs, medicaments and biological substances; R11.2 Nausea with vomiting, unspecified; Z98.0 Intestinal bypass and anastomosis status; K44.9 Diaphragmatic hernia without obstruction or gangrene
CPT/HCPCS: 36415; 43239; 74177; 80053 ×2; 83735; 84100; 84443; 85025 ×2; 88305; 88312; 90732; 96360; 96374; 96375; 99284; G0378 ×2; J1885; J2250; J2405; J3410; J7030 ×3

== ENCOUNTER 2017-10-08 22:50 | Emergency (ER) | payer MEDICARE, OTHER ==
[~2017-10-08] VITALS: Ht 160 cm; Wt 68.0 kg
[~2017-10-08 22:50] MED LIST: ADVAIR 100-501 EACH; ASPIR 8181 MG PO; BENZONATATE100 MG PO; CYCLOBENZAPRINE10 MG PO; DICYCLOMINE HCL20 MG PO; HYDROXYZINE HCL25 MG PO; LAMOTRIGINE100 MG PO; LEVALBUTER0.63 MG/3 NEB; LUNESTA2 MG PO; LYRICA50 MG PO; METOPROLOL TART50 MG PO; PANTOPRAZOLE SO40 MG PO; PROCHLORPERAZIN10 MG PO; PROMETHAZINE HC25 M1 PO; SERTRALINE HCL100 MG PO; SUCRALFATE1 GM PO; SUMATRIPTAN SUC25 MG PO; SUMATRIPTAN20 MG
--- OUTSIDE RECORDS SUMMARY | 2017-10-08 22:52 | XMS REPORT | Clinical Summary ---
Author Author [facility] Organization [facility] Address Unknown Phone Unavailable Care Team Providers Care Deep Tissue Massage Therapist Name Role Phone Deepthi Edouard MD PCP Allergies Active Allergy Reactions Severity Noted Date Comments Ciprofloxacin Itching, Rash Medium 02/16/2016 Clindamycin Itching, Rash Medium 10/01/2016 Ziprasidone Hcl Other (See Comments) High 02/16/2016 Fluid around heart Other Other (See Comments) High 12/25/2016 All medications that prolong QT Metoclopramide Hcl Other (See Comments) High 02/16/2016 Seizures Current Medications Prescription Sig. Disp. Refills Start End Date Status Date beclomethasone (QVAR) 80 Inhale 1 puff 2 (two) Active mcg/actuation inhaler times a day. cyclobenzaprine Take 10 mg by mouth 3 Active (FLEXERIL) 10 mg tablet (three) times a day as needed for muscle spasms. HYDROcodone-acetaminophen Take 1 tablet by mouth Active (NORCO) 10-325 mg per every 4 (four) hours as tablet needed for moderate pain. levalbuterol (XOPENEX) Take 1 ampule by Active 1.25 mg/3 mL nebulizer nebulization every 4 solution (four) hours as needed for wheezing or shortness of breath. pantoprazole (PROTONIX) Take 40 mg by mouth 2 Active 40 MG EC tablet (two) times a day. pregabalin (LYRICA) 100 Take 100 mg by mouth 2 Active MG capsule (two) times a day. sertraline (ZOLOFT) 100 Take 200 mg by mouth Active MG tablet every morning. sucralfate (CARAFATE) 1 Take 1 g by mouth 4 Active gram tablet (four) times a day before meals and nightly. SUMAtriptan (IMITREX) 100 Take 100 mg by mouth once Active MG tablet as needed for migraine. May repeat in 2 hours if unresolved. Do not exceed 200 mg in 24 hours. umeclidinium (INCRUSE Inhale 62.5 mcg daily. Active ELLIPTA) 62.5 mcg/actuation blister with device dicyclomine (BENTYL) 20 Take 20 mg by mouth 3 Active mg tablet (three) times a day. valsartan (DIOVAN) 160 MG Take 160 mg by mouth Active tablet daily. (Hold if SBP < 110) prochlorperazine Take 10 mg by mouth 3 Active (COMPAZINE) 10 MG tablet (three) times a day as needed for nausea or vomiting. benzonatate (TESSALON) Take 100 mg by mouth Active 100 MG capsule every 8 (eight) hours as needed for cough. hydrOXYzine (ATARAX) 50 Take 50 mg by mouth Active MG tablet nightly. lamoTRIgine (LaMICtal) Take 100 mg by mouth Active 100 MG tablet daily. levalbuterol (XOPENEX Inhale 1-2 puffs every 4 Active HFA) 45 mcg/actuation (four) hours as needed inhaler for wheezing or shortness of breath. fluticasone (FLONASE) 50 2 sprays by Each Nare Active mcg/actuation nasal spray route 2 (two) times a day. aspirin (ECOTRIN) 81 MG Take 81 mg by mouth every Active enteric coated tablet morning. HYDROcodone-acetaminophen Take 1 tablet by mouth 09/13/19 Discontin (NORCO 10-325) 10-325 mg every 4 (four) hours as 18 ued per tablet needed for moderate pain. acyclovir (ZOVIRAX) 400 Take 400 mg by mouth 12/20/19 Discontin MG tablet daily. 17 ued lactulose (GENERLAC) 10 Take 20 g by mouth 4 12/20/19 Discontin gram/15 mL solution (four) times a day. 17 ued mirtazapine (REMERON) 15 Take 15 mg by mouth 09/13/19 Discontin MG tablet nightly. 18 ued pantoprazole (PROTONIX) Take 40 mg by mouth 3 09/13/19 Discontin 40 MG EC tablet (three) times a day. 18 ued promethazine (PHENERGAN) Take 12.5 mg by mouth 09/13/19 Discontin 12.5 MG tablet every 8 (eight) hours as 18 ued needed for nausea or vomiting. sertraline (ZOLOFT) 100 Take 150 mg by mouth 09/13/19 Discontin MG tablet nightly. 18 ued sucralfate (CARAFATE) 1 Take 1 g by mouth 4 09/13/19 Discontin gram tablet (four) times a day. 18 ued lamoTRIgine (LaMICtal) Take 200 mg by mouth 09/13/19 Discontin 200 MG tablet daily. 18 ued losartan (COZAAR) 50 MG Take 50 mg by mouth 09/13/19 Discontin tablet daily. 18 ued SUMAtriptan (IMITREX) 100 Take 100 mg by mouth once 09/13/19 Discontin MG tablet as needed for migraine. 18 ued May repeat in 2 hours if unresolved. Do not exceed 200 mg in 24 hours. levalbuterol (XOPENEX) Take 1 ampule by 09/13/19 Discontin 1.25 mg/3 mL nebulizer nebulization every 4 18 ued solution (four) hours as needed for wheezing. beclomethasone (QVAR) 80 Inhale 2 puffs 2 (two) 09/13/19 Discontin mcg/actuation inhaler times a day. 18 ued cyclobenzaprine Take 10 mg by mouth 3 09/13/19 Discontin (FLEXERIL) 10 mg tablet (three) times a day. 18 ued pregabalin (LYRICA) 100 Take 100 mg by mouth 2 09/13/19 Discontin MG capsule (two) times a day. 18 ued umeclidinium (INCRUSE Inhale 62.5 mcg daily. 09/13/19 Discontin ELLIPTA) 62.5 18 ued mcg/actuation blister with device Active Problems Problem Noted Date Chest pain at rest 09/12/2017 Gastroparesis 12/25/2016 Cellulitis 09/17/2016 Cervical radiculopathy 04/20/2016 [...] Encounters Date Type Specialty Care Team Description 09/12/2017 Emergency General Internal Medicine Sharon Cunningham MD Chest pain at rest - Filemon Escobedo MD (Primary Dx) 09/13/2017 Jenny Gutierrez MD 01/28/2017 Office Visit Orthopedic Surgery Juan Mcmahan, Cervical vertebral fusion (Primary Dx); Chronic low back pain without sciatica, unspecified back pain laterality 12/25/2016 [facility] Venkat Pitts MD [...] Jennifer Hernandez 11/15/2016 Procedure Pass General Surgery after 10/07/2016 Family History Medical History Relation Name Comments [...] Vital Sign Reading Time Taken Blood Pressure 98/58 09/13/2017 4:21 PM CDT Pulse 69 09/13/2017 4:21 PM CDT Temperature 36.4 C (97.6 F) 09/13/2017 4:21 PM CDT Respiratory Rate 17 09/13/2017 4:21 PM CDT Oxygen Saturation 96% 09/13/2017 4:21 PM CDT Inhaled Oxygen - - Concentration Weight 67.6 kg (149 lb) 09/12/2017 4:21 PM CDT Height 160 cm (5' 3") 09/12/2017 4:21 PM CDT Body Mass Index 26.39 09/12/2017 4:21 PM CDT Plan of Treatment Health Maintenance Due Date Last Done Comments PAP SMEAR 1985 COLONOSCOPY 2014 MAMMOGRAM 2014 SHINGRIX VACCINE (#1) 2014 INFLUENZA VACCINE 01/08/2018 Implants Implanted Type Area [employer] Device Expiration Model / Identifier Date Serial / Lot Hde# [id number] Neurostimulator Neurosurgi N/A: N/A [employer] 2016 [id number] / Enterra Ii Therapy System - david NEUROMODULATION [id number] - [id number] Implants / Implanted: Qty: 1 on 09/13/2016 by [id number] Venkat Pitts MD Procedures Procedure Name Priority Date/Time Associated Diagnosis Comments IN AN ELECTIVE Routine 12/25/2016 ENDOTRACHEAL AIRWAY 4:21 [...] STAT 12/25/2016 PROGRAMMING SINGLE 11:19 AM CDT after 10/07/2016 Results * ECG 12 lead (09/13/2017 9:56 AM) Only the most recent of 2 results within the time period is included. Component Value Ref Range Ventricular rate 64 Atrial rate 64 IN interval 160 QRSD interval 92 QT interval 452 QTC interval 466 P axis 1 22 QRS axis 1 47 T wave axis 24 EKG impression Normal sinus rhythm-Prolonged QT-Abnormal ECG-In automated comparison with ECG of 12-SEP-2017 16:31,-No significant change was found- Specimen Performing Laboratory [facility] [address] [place] [phone] * Estimated GFR (09/13/2017 5:30 AM) Only the most recent of 4 results within the time period is included. Component Value Ref Range GFR Non Af Amer 65 mL/min/1.73 m2 GFR Af Amer 79 mL/min/1.73 m2 Comment: Chronic kidney disease: <60 [...] and Americans. Specimen Performing Laboratory Plasma specimen [facility] DEPARTMENT OF PATHOLOGY AND GENOMIC MEDICINE [address] [place] [id number] * Troponin (09/13/2017 5:30 AM) Only the most recent of 3 results within the time period is included. Component Value Ref Range Troponin <0.30 0.00 - 0.30 ng/mL Comment: 0.30 - 1.49 ng/ml May indicate increased risk of acute coronary syndrome. >=1.5 ng/ml Consistent with acute myocardial infarction. The diagnostic value of a single normal or non-diagnostic result is questionable. Serial samples at 2-6 hour intervals are required to rule out acute myocardial injury. Specimen Performing Laboratory Plasma specimen [facility] DEPARTMENT OF PATHOLOGY AND GENOMIC MEDICINE [address] [place] [id number] * Partial thromboplastin time, activated (09/13/2017 5:30 AM) Only the most recent of 2 results within the time period is included. Component Value Ref Range PTT 29.8 23.0 - 36.0 sec Comment: PTT therapeutic range for unfractionated heparin is 61.0-112.0 seconds which corresponds to Anti-Xa 0.3-0.7 U/ml. Specimen Performing Laboratory Blood [facility] DEPARTMENT OF PATHOLOGY AND GENOMIC MEDICINE [address] [place] [id number] * Prothrombin time with INR (09/13/2017 5:30 AM) Only the most recent of 2 results within the time period is included. Component Value Ref Range Prothrombin time 13.1 12.0 - 15.0 sec INR 1.0 Comment: The International Normalized Ratio (INR) is a therapeutic monitoring tool for patients who are stable on oral anticoagulant therapy. An INR of 2.0-3.0 is suggested for deep vein thrombosis/pulmonary embolism. Specimen Performing Laboratory Blood [facility] DEPARTMENT OF PATHOLOGY AND [facility] [address] [place] [id number] * CBC with platelet and differential (09/13/2017 5:30 AM) Only the most recent of 4 results within the time period is included. Component Value Ref Range WBC 4.26 (L) 4.50 - 11.00 k/uL RBC 4.04 (L) 4.20 - 5.50 m/uL HGB 11.8 (L) 12.0 - 16.0 g/dL HCT 36.3 (L) 37.0 - 47.0 % MCV 89.9 82.0 - 100.0 fL MCH 29.2 27.0 - 34.0 pg MCHC 32.5 31.0 - 37.0 g/dL RDW - SD 45.8 37.0 - 55.0 fL MPV 12.2 8.8 - 13.2 fL Platelet count 186 150 - 400 k/uL Nucleated RBC 0.00 /100 WBC Neutrophils 39.6 39.0 - 69.0 % Lymphocytes 43.0 25.0 - 45.0 % Monocytes 12.0 (H) 0.0 - 10.0 % Eosinophils 3.5 0.0 - 5.0 % Basophils 1.4 (H) 0.0 - 1.0 % Immature granulocytes 0.5Comment: "Immature granulocytes" 0.0 - 1.0 % (promyelocytes, myelocytes, metamyelocytes) Specimen Performing Laboratory Blood [facility] DEPARTMENT OF PATHOLOGY AND [facility] [address] [place] [id number] * B natriuretic peptide (09/13/2017 5:30 AM) Only the most recent of 2 results within the time period is included. Component Value Ref Range BNP 11 0 - 100 pg/mL Specimen Performing Laboratory Blood [facility] DEPARTMENT OF PATHOLOGY AND [facility] [address] [place] [id number] * Basic metabolic panel (09/13/2017 5:30 AM) Only the most recent of 2 results within the time period is included. Component Value Ref Range Sodium 143 135 - 148 mEq/L Potassium 4.0 3.5 - 5.0 mEq/L Chloride 108 98 - 112 mEq/L CO2 21 (L) 24 - 31 mEq/L Anion gap 14 7 - 15 mEq/L Comment: Starting from September , anion gap calculation no longer incorporates potassium. Please note the change. BUN 19 6 - 20 mg/dL Creatinine 0.9 0.5 - 0.9 mg/dL Glucose 92 65 - 99 mg/dL Calcium 9.1 8.3 - 10.2 mg/dL Specimen Performing Laboratory Plasma specimen [facility] DEPARTMENT OF PATHOLOGY AND GENOMIC MEDICINE [address] [place] [id number] * ECG ED Preliminary Interpretation - NOT AN ORDER (09/12/2017 6:51 PM) Arnold Cunningham MD 09/13/2017 11:04 AM ECG ED Preliminary Interpretation - Not an Order Performed by: SHARON CUNNINGHAM Authorized by: SHARON CUNNINGHAM ECG reviewed by ED Physician in the absence of a iron molder helper: yes Previous ECG: Previous ECG:Unavailable Interpretation: Interpretation: normal Rate: ECG rate:77 ECG rate assessment: normal Rhythm: Rhythm: sinus rhythm Ectopy: Ectopy: none QRS: QRS axis:Normal QRS intervals:Normal Conduction: Conduction: normal ST segments: ST segments:Normal T waves: T waves: normal * Comprehensive metabolic panel (09/12/2017 5:38 PM) Only the most recent of 2 results within the time period is included. Component Value Ref Range Sodium 142 135 - 148 mEq/L Potassium 4.2 3.5 - 5.0 mEq/L Chloride 106 98 - 112 mEq/L CO2 21 (L) 24 - 31 mEq/L Anion gap 15 7 - 15 mEq/L Comment: Starting from September , anion gap calculation no longer incorporates potassium. Please note the change. BUN 16 6 - 20 mg/dL Creatinine 0.9 0.5 - 0.9 mg/dL Glucose 105 (H) 65 - 99 mg/dL Calcium 9.2 8.3 - 10.2 mg/dL Protein 7.0 6.3 - 8.3 g/dL Comment: 4.6-7.0 g/dL 1 week 4.4-7.6 g/dL 7 months-1year 5.1-7.3 g/dL 1-2 years 5.6-7.5 g/dL >3 years 6.0-8.0 g/dL 18-150 6.3-8.3 g/dL Albumin 3.4 (L) 3.5 - 5.0 g/dL A/G ratio 0.9 0.7 - 3.8 Alkaline phosphatase 103 35 - 104 U/L AST 25 10 - 35 U/L ALT 16 5 - 50 U/L Total bilirubin <0.2 0.0 - 1.2 mg/dL Specimen Performing Laboratory Plasma specimen [facility] DEPARTMENT OF PATHOLOGY AND GENOMIC MEDICINE [address] [place] [id number] * XR Chest 2 Vw (09/12/2017 5:19 PM) Specimen Performing Laboratory [facility] [address] [place] [phone] Narrative Examination: XR CHEST 2 VW Clinical history: Chest Pain Comparison: June 13, 2016 Impression: 1. The heart and pulmonary vasculature are within normal limits. 2. No infiltrate or effusion is demonstrated. 3. There is no acute osseous pathology. Old right rib fracture and C-spine fusion plate are unchanged. Single lead AICD is stable. CONCLUSION: NO RADIOGRAPHIC EVIDENCE OF ACUTE CARDIOPULMONARY ABNORMALITY. [facility]-[id number] Procedure Note Interface, Radiology Results Incoming - 09/12/2017 5:23 PM CDT Examination: XR CHEST 2 VW Clinical history: Chest Pain Comparison: June 13, 2016 Impression: 1. The heart and pulmonary vasculature are within normal limits. 2. No infiltrate or effusion is demonstrated. 3. There is no acute osseous pathology. Old right rib fracture and C-spine fusion plate are unchanged. Single lead AICD is stable. CONCLUSION: NO RADIOGRAPHIC EVIDENCE OF ACUTE CARDIOPULMONARY ABNORMALITY. [facility]-[id number] * XR Cervical Spine 2 Or 3 Vw (01/28/2017 4:10 PM) Specimen Performing Laboratory [facility] [address] [place] [address] Narrative X-rays cervical spine C5 desk 6 and C4-5 ACDF. No interbody cage collapse. No screw telescoping endplate breakage. No fractures visualized. * XR Thoracic Spine 2 Vw (01/28/2017 4:10 PM) Specimen Performing Laboratory [facility] [address] [place] [phone] Narrative X-ray thoracic spine shows multilevel disc degeneration. No compression fractures visualized. * Urinalysis screen and microscopy, with reflex to culture (12/27/2016 9:15 AM) Component Value Ref Range Specimen site Clean [...] None seen UA Specimen Performing Laboratory Urine [facility] DEPARTMENT OF PATHOLOGY AND GENOMIC MEDICINE [address] [place] [address] * Urine culture (12/27/2016 9:15 AM) Component Value Ref Range Urine culture SEE COMMENTComment: Bacteriuria screen negative. Specimen Performing Laboratory [facility] DEPARTMENT OF PATHOLOGY AND GENOMIC MEDICINE [address] [place] [address] * Phosphorus level (12/26/2016 9:14 PM) Component Value Ref Range Phosphorus 3.1 2.4 - 4.5 mg/dL Specimen Performing Laboratory Plasma specimen [facility] DEPARTMENT OF PATHOLOGY AND GENOMIC MEDICINE [address] [place] [address] * Magnesium level (12/26/2016 9:14 PM) Component Value Ref Range Magnesium 1.9 1.6 - 2.6 mg/dL Specimen Performing Laboratory Plasma specimen [facility] DEPARTMENT OF PATHOLOGY AND GENOMIC MEDICINE [address] [place] [address] * Lactic acid level (12/26/2016 9:14 PM) Component Value Ref Range Lactic acid 1.2 0.5 - 2.2 mmol/L Specimen Performing Laboratory Plasma specimen [facility] DEPARTMENT OF PATHOLOGY AND GENOMIC MEDICINE [address] [place] [address] * Manual differential (12/26/2016 9:00 PM) Component Value Ref Range Manual differential PERFORMED Neutrophils 58.0 39.0 - 69.0 % Lymphocytes 24.0 (L) 25.0 - 45.0 % Monocytes 9.0 0.0 - 10.0 % Eosinophils 8.0 (H) 0.0 - 5.0 % Basophils 1.0 0.0 - 1.0 % Metamyelocytes 0 % Promyelocytes 0 % Platelet slide review Tamar adequate Specimen Performing Laboratory [facility] DEPARTMENT OF PATHOLOGY AND GENOMIC MEDICINE [address] [place] [address] * XR Abdomen 1 Vw Portable (12/26/2016 1:13 AM) Specimen Performing Laboratory [facility] [address] [place] [address] Narrative EXAMINATION:XR ABDOMEN 1 VW PORTABLE CLINICAL [...] the pelvis. CT could be obtained. * CV pacemaker defib or ilr interrogation (12/25/2016 11:19 AM) Specimen Performing Laboratory [facility] [address] [place] [address] * Surgical pathology request (12/25/2016 8:59 AM) Component Value Ref Range Surgical pathology report See link below for PDF Lab Report Specimen Performing Laboratory [facility] DEPARTMENT OF PATHOLOGY AND GENOMIC MEDICINE [address] [place] [id number] after 10/07/2016 Insurance Payer Benefit Subscriber ID Type Phone Address Plan / Group [employer]IG[employer] AMERIGROUP xxxxxxxxx HMO -AMERIVANT AGE MCR HMO [employer] AMER[employer] xxxxxxxxx HMO [employer] MEDICAID MEDICAID xxxxxxxxx Medicaid [place] [id number]
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
[2017-10-08] MEDS ORDERED: HYDROCODONE/APAP 5MG-325MG TAB PO ONE (23:15)
[2017-10-08] MEDS ORDERED: CYCLOBENZAPRINE HCL 10 MG TAB PO ONE (23:15)
[2017-10-08 23:21] VITALS: BP 135/86
== END 2017-10-09 00:03 | disposition home or self-care (01) ==
LOC: FSED 22:50 → ER 10-09 00:03
DX: M25.532 Pain in left wrist (principal); M54.12 Radiculopathy, cervical region; M75.92 Shoulder lesion, unspecified, left shoulder; M77.8 Other enthesopathies, not elsewhere classified; F17.210 Nicotine dependence, cigarettes, uncomplicated
CPT/HCPCS: 99283

== ENCOUNTER → 2018-02-03 | Outpatient (CLI) | payer MEDICARE | LOC: RAD 09:47 | PROVIDERS: ATTEND Internal Medicine | DX: R01.1 Cardiac murmur, unspecified (principal) | CPT/HCPCS: 93306 ==

== ENCOUNTER 2018-02-18 17:16 | Emergency (ER) | payer MEDICARE ==
[~2018-02-18] VITALS: Ht 160 cm; Wt 68.0 kg
[2018-02-18 18:35] VITALS: BP 128/81
== END 2018-02-18 18:35 | disposition home or self-care (01) ==
LOC: FSED 17:16
DX: Z45.018 Encounter for adjustment and management of other part of cardiac pacemaker (principal); I10 Essential (primary) hypertension; I51.9 Heart disease, unspecified
CPT/HCPCS: 99283